=== PATIENT | female | born 1975 | race Caucasian/White ===

== ENCOUNTER 2017-12-18 10:03 | Emergency (ER) | payer OTHER ==
--- NOTE | 2017-12-18 12:06 | ED Physician Documentation ---
PD HPI CHEST PAIN - Stated complaint Stated Complaint: HEART PALPITATION - Chief complaint Chief Complaint: Cardiac - History obtained from History obtained from: Patient - History of Present Illness Timing - onset: Yesterday Timing - onset during: Rest. No: Light activity Timing - duration: Other (she was feeling heart skipping frequently yesterday a nd less often but still regularly today, noted when resting and not with activity. feels like heart "hiccups" occasionally.) Quality: No: Pressure, Tightness Location: Substernal Associated symptoms: Palpitations. No: Shortness of air, Diaphoresis, Nausea, Feeling faint / dizzy, General Weakness, Cough Similar symptoms before: Has not had sx before Recently seen: Not recently seen Review of Systems Unable to obtain: Other (minimal coffee drinker; no decongestants nor other stimulants regularly. Had started a mild diet pill a month ago that has some caffeine in it (green tea leaf and some other).) Constitutional: denies: Fever, Chills, Myalgias Nose: denies: Rhinorrhea / runny nose, Congestion Throat: denies: Sore throat Cardiac: reports: Palpitations. denies: Chest pain / pressure, Pedal edema, Calf pain Respiratory: denies: Dyspnea, Cough GI: denies: Abdominal Pain, Nausea, Vomiting, Diarrhea Skin: denies: Rash, Lesions PD PAST MEDICAL HISTORY - Past Medical History Cardiovascular: None Respiratory: None Neuro: None Endocrine/Autoimmune: None - Allergies Allergies/Adverse Reactions: Allergies Allergy/AdvReac Type Severity Reaction Status Date / Time No Known Drug Allergies Allergy Verified 12/18/17 10:45 - Family History Family history: reports: CAD PD ED PE NORMAL - Vitals Vital signs reviewed: Yes - General General: Alert and oriented X 3, No acute distress, Well developed/nourished - HEENT HEENT: Pharynx benign - Neck Neck: Supple, no meningeal sign, No adenopathy, Thyroid normal, No JVD, No bruit - Cardiac Cardiac: RRR, No murmur - Respiratory Respiratory: Clear bilaterally - Abdomen Abdomen: Soft, Non tender - Derm Derm: Normal color, Warm and dry - Extremities Extremities: No deformity, No tenderness to palpate, No edema, No calf tenderness / cord - Neuro Neuro: Alert and oriented X 3, No motor deficit, Normal speech Results - Vitals Vitals: Oxygen O2 Source Room air - EKG (time done) 10:19 Rate: Rate (enter#) (91) Rhythm: NSR Isabella: Normal QRS: Normal Ischemia: Normal ST segments. No: ST elevation c/w ischemia, ST depression - Labs Labs: Laboratory Tests 12/18/17 12/18/17 12/18/17 12:39 12:39 12:39 WBC 6.1 RBC 4.77 Hgb 14.0 Hct 40.6 MCV 85.3 MCH 29.4 MCHC 34.4 RDW 13.2 Plt Count 232 MPV 7.8 L Neut # (Auto) 3.4 Lymph # (Auto) 1.9 [place] # (Auto) 0.5 Eos # (Auto) 0.1 Baso # (Auto) 0.1 Absolute Nucleated RBC 0.00 Nucleated RBC % 0.1 Sodium 138 Potassium 3.7 Chloride 107 Carbon Dioxide 23 Anion Gap 8.0 BUN 14 Creatinine 0.7 Estimated GFR (MDRD) 92 Glucose 85 Calcium 9.0 Magnesium 2.1 Total Bilirubin 0.6 AST 19 ALT 17 Alkaline Phosphatase 51 Troponin I < 0.04 Total Protein 7.1 Albumin 4.3 Globulin 2.8 Albumin/Globulin Ratio 1.5 Lipase 43 TSH 12/18/17 12:39 WBC RBC Hgb Hct MCV MCH MCHC RDW Plt Count MPV Neut # (Auto) Lymph # (Auto) [place] # (Auto) Eos # (Auto) Baso # (Auto) Absolute Nucleated RBC Nucleated RBC % Sodium Potassium Chloride Carbon Dioxide Anion Gap BUN Creatinine Estimated GFR (MDRD) Glucose Calcium Magnesium Total Bilirubin AST ALT Alkaline Phosphatase Troponin I Total Protein Albumin Globulin Albumin/Globulin Ratio Lipase TSH 2.17 - Rads (name of study) chest Radiology: Prelim report reviewed (normal) PD MEDICAL DECISION MAKING - ED course Complexity details: reviewed results, re-evaluated patient (no feeling of irregularity while here. ), considered differential (description is of benign palpitations. ), d/w patient Departure - Departure Disposition: 01 Home, Self Care Clinical Impression: Heart palpitations Condition: Stable Record reviewed to determine appropriate education?: Yes Instructions: ED Palpitations Comments: Your blood tests appear normal with the potassium level being just within the normal range at the low end. With the palpitations sometimes it is good to have it mid range and so I might suggest a potassium supplement over the next week or 2. Otherwise stay well-hydrated. Decrease caffeine and stimulant overall. Exercise regularly if you can as that will actually decrease the amount of palpitations overall. These are typically benign and may feel annoying but are not harmful. Discharge Date/Time: 12/18/17 13:35
--- NOTE | 2017-12-18 12:24 | XRAY Report ---
Reason: palpitations Procedure Date: 12/18/2017 Accession Number: [id number] / [id number] Procedure: XR - Chest 1 View X-Ray CPT Code: 66359 FULL RESULT: EXAM: CHEST RADIOGRAPHY EXAM DATE: 12/18/2017 12:00 PM. CLINICAL HISTORY: Palpitations COMPARISON: None. TECHNIQUE: 1 view. FINDINGS: Lungs/Pleura: No focal opacities evident. No pleural effusion. No pneumothorax. Mediastinum: Within exam limitations, the cardiomediastinal contour is normal. Other: None. IMPRESSION: Normal single view chest. [facility]
[2017-12-18 12:48] LABS: BASOPHILS # (AUTO) 0.1 10^3/uL (0.0-0.1); BASOPHILS % (AUTO) 1.3 %; EOSINOPHILS # (AUTO) 0.1 10^3/uL (0.0-0.7); EOSINOPHILS % (AUTO) 1.4 %; LYMPHOCYTES # (AUTO) 1.9 10^3/uL (1.5-3.5); MEAN CORPUSCULAR HEMOGLOBIN 29.4 pg (27.0-31.0); MEAN CORPUSCULAR HGB CONC 34.4 g/dL (32.0-36.0); MEAN CORPUSCULAR VOLUME 85.3 fL (81.0-99.0); MEAN PLATELET VOLUME 7.8 fL (7.9-10.8); MONOCYTES # (AUTO) 0.5 10^3/uL (0.0-1.0); MONOCYTES % (AUTO) 8.6 %; NEUTROPHILS # (AUTO) 3.4 10^3/uL (1.5-6.6); NEUTROPHILS % (AUTO) 56.7 %; PLT - PLATELET COUNT 232 10^3/uL (130-450); RED BLOOD COUNT 4.77 10^6/uL (4.20-5.40); RED CELL DISTRIBUTION WIDTH 13.2 % (12.0-15.0); WHITE BLOOD COUNT 6.1 x10^3/uL (4.8-10.8)
[2017-12-18 12:57] LABS: ALBUMIN 4.3 g/dL (3.2-5.5); ALBUMIN/GLOBULIN RATIO 1.5 (1.0-2.2); BILIRUBIN,TOTAL 0.6 mg/dL (0.2-1.0); CREATININE 0.7 mg/dL (0.4-1.0); MAGNESIUM 2.1 mg/dL (1.7-2.8); TOTAL PROTEIN 7.1 g/dL (6.7-8.2)
[2017-12-18] MEDS ORDERED: POTASSIUM BICARB 25 MEQ TABLET PO STA (13:18)
[2017-12-18 13:35] VITALS: BP 104/67
== END 2017-12-18 13:35 | disposition home or self-care (01) ==
LOC: ED 10:03
DX: R00.2 Palpitations (principal)
CPT/HCPCS: 36415; 71045; 80053; 83690; 83735; 84443; 84484; 85025; 93005; 99283; A9270